=== PATIENT | female | born 1965 | race Two or more races ===

== ENCOUNTER 2023-09-25 09:19 | Emergency (ER) | payer BC, OTHER ==
[~2023-09-25] VITALS: Ht 162.6 cm; Wt 81.1 kg
[2023-09-25 11:24] VITALS: BP 111/73; PULSE 89; RESP 18; TEMP 98; O2SAT 95
[2023-09-25 11:35] LABS: Basophils # (auto) 0.1 10 ^3/uL (0-0.2); Chloride 106 mmol/L (98-107); Hemoglobin 9.4 g/dL (12.2-16.2); Lymphocytes # (auto) 3.1 10 ^3/uL (0.4-5.4); Monocytes # (auto) 0.5 10 ^3/uL (0-1.3); Potassium 3.7 mmol/L (3.5-5.1); Red Blood Cells 4.29 10^6/uL (4.0-5.20); Sodium 139 mmol/L (136-145); White Blood Cell 7.4 10^3/uL (4.4-10.8)
[2023-09-25 11:36] LABS: Anion Gap 7 (5-15); Carbon Dioxide 26 mmol/L (20-30)
[2023-09-25 11:37] LABS: Basophils % (auto) 1.1 % (0.0-2.0); Calcium 9.7 mg/dL (8.7-10.4); Eosinophils # (auto) 0.2 10 ^3/uL (0-0.8); Eosinophils % (auto) 2.3 % (0.0-7.0); Hematocrit 29.9 % (36.0-46.0); Lymphocytes % (auto) 42.1 % (10.0-50.0); Mean Corpuscular Hemoglobin 21.8 pg (28.0-32.0); Mean Corpuscular Hgb Conc. 31.3 g/dL (32.0-36.0); Mean Corpuscular Volume 69.8 fL (80.0-100.0); Monocytes % (auto) 6.3 % (0.0-12.0); Neutrophils # (auto) 3.5 10 ^3/uL (1.6-8.6); Neutrophils % (auto) 48.2 % (37.0-80.0); Red Cell Distribution Width 16.7 % (11.8-14.3)
[2023-09-25 11:42] LABS: BUN/Creatinine Ratio 15.5 (10.0-20.0); Blood Urea Nitrogen 9 mg/dL (9-23); Glucose 194 mg/dL (74-106)
== END 2023-09-25 12:30 | disposition home or self-care (01) ==
LOC: ER 09:19
DX: R73.9 Hyperglycemia, unspecified (principal); D50.9 Iron deficiency anemia, unspecified
CPT/HCPCS: 36415; 80048; 82962; 85025